=== PATIENT | female | born 1945 | race Two or more races ===

== ENCOUNTER 2020-04-21 12:20 | Outpatient (CLI) | payer MEDICARE, OTHER ==
--- NOTE | 2020-04-21 12:49 | XRAY Report ---
PROCEDURE: Chest 2 View X-Ray INDICATIONS: TUBERCULOSIS OF SKIN SUBCUTANEOUS TISSUE TECHNIQUE: 2 view(s) of the chest. COMPARISON: None. FINDINGS: Surgical changes and devices: Prior cervical fusion plate and tendon transfer gilmar.. Lungs and pleura: No pleural effusions or pneumothorax. Lungs are clear. Mediastinum: Mediastinal contours are normal. Heart size is normal. Bones and chest wall: No suspicious bony abnormalities. Soft tissues appear unremarkable. IMPRESSION: No pneumonia found, no evidence of chronic active tuberculosis identified. Note is made of a anterior fusion plate at the low cervical spine, and also to attend transverse gilmar right hum eral head. Reviewed by: Kiko Munoz MD on 04/21/2020 12:47 PM PST Approved by: Kiko Munoz MD on 04/21/2020 12:47 PM PST Station ID: [id number]
== END 2020-04-21 12:21 | disposition home or self-care (01) ==
LOC: DI 12:20
PROVIDERS: ATTEND Physician Assistant Medical
DX: A18.4 Tuberculosis of skin and subcutaneous tissue (principal)

== ENCOUNTER 2022-05-04 12:34 | Outpatient (CLI) | payer MEDICARE, OTHER ==
--- NOTE | 2022-05-04 17:15 | DEXA Report ---
PROCEDURE: Dexa Spine and/or Hip INDICATIONS: OSTEOPOROSIS TECHNIQUE: Dual energy x-ray absorptiometry (DXA) was performed on a [email or web address] System. Regions measur ed are the AP Spine, femoral neck, and if needed forearm. COMPARISON: None. FINDINGS: Lumbar Spine: Bone Mineral Density 1.218 g/cm/cm,T score 0.2. Left Femoral Neck: Bone Mineral Density 0.775 g/cm/cm, T score -1.9. Left Hip: Bone Mineral Density 0.806 g/cm/cm,T score -1.6. Right forearm: (Obtained due to presence of lumbar spine fusion hardware) Bone Mineral Density 0.610 g/cm/cm, T score -3.0. (T score greater or equal to -1.0: NORMAL) (T score from -1.1 to -2.4: OSTEOPENIA) (T score less than or equal to -2.5 to: OSTEOPOROSIS) Impression: Osteoporosis. Patients with diagnosis of osteoporosis or osteopenia should have regular bone mineral density assess ment. For those eligible for Medicare, routine testing is allowed once every 2 years. Testing frequ ency can be increased for patients who have rapidly progressing disease or for those who are receivin g medical therapy to restore bone mass. Reviewed by: Nabeel Tatum MD on 05/04/2022 5:14 PM PST Approved by: Nabeel Tatum MD on 05/04/2022 5:14 PM PST Station ID: [id number]
== END 2022-05-04 12:35 | disposition home or self-care (01) ==
LOC: DI 12:34
PROVIDERS: ATTEND Family Medicine
DX: M81.0 Age-related osteoporosis without current pathological fracture (principal); Z98.1 Arthrodesis status